=== PATIENT | female | born 1985 | race Two or more races ===

== ENCOUNTER 2016-07-20 17:01 | Emergency (ER) | payer MEDICAID ==
[~2016-07-20] VITALS: Ht 157.5 cm; Wt 77.1 kg
[2016-07-20 18:15] VITALS: BP 119/84
== END 2016-07-20 20:19 | disposition home or self-care (01) ==
LOC: ER 17:05
DX: M62.838 Other muscle spasm (principal); M54.9 Dorsalgia, unspecified; R20.0 Anesthesia of skin; F17.210 Nicotine dependence, cigarettes, uncomplicated
CPT/HCPCS: 72070